=== PATIENT | female | born 1970 | race Caucasian/White ===

== ENCOUNTER 2020-11-25 11:28 | Outpatient (CLI) | payer OTHER, SELFPAY | END 2020-11-25 11:29 | disposition home or self-care (01) | LOC: ANHSURGERY 11:34 | PROVIDERS: PCP Family Medicine; Visit Provider Obstetrics & Gynecology | DX: Z01.812 Encounter for preprocedural laboratory examination (principal); D25.9 Leiomyoma of uterus, unspecified | CPT/HCPCS: 36415; 86850; 86900; 86901 ==

== ENCOUNTER 2020-11-29 00:34 | Day surgery (SDC) | payer OTHER, SELFPAY ==
[2020-11-23 17:57] VITALS: BMI 31.3
[2020-11-29] VITALS (11 sets, daily range): BP systolic 103–121; BP diastolic 58–73; PULSE 67–97; RESP 12–18; TEMP 36.2–37.3; O2SAT 97–100
[2020-11-29] MEDS: ACETAMINOPHEN 500 MG TABLET 1000 MG PO (10:38)
[2020-11-29] MEDS: KETOROLAC 15 MG/ML VIAL (*BKC) IV PUSH (10:45)
[2020-11-29] MEDS: LACTATED RINGERS 1,000 ML 30 ML IV CONT ×2 (10:45→15:05)
--- NOTE | 2020-11-29 11:27 | P.PNAN_ITS ---
Anes - Initial Pre Proc Eval Procedure: Operation Date: 11/29/20 12:00 Proposed Procedures p Laparoscopic Assisted Total Vaginal Hysterectomy With Bilateral Salpingo- Oophorectomy - Tyrone Hernandez MD Date/Time: 11/29/20 11:27 Surgeon: Tyrone Hernandez MD Pre Op Diagnosis: Uterine Leiomyoma Patient Data Age: 50 Gender: F Height: 1.68 m Weight: 89.4 kg Last Vital Signs Temp 97.9 F 11/29/20 10:10 Pulse 86 11/29/20 10:10 Resp 16 11/29/20 10:10 BP 119/71 11/29/20 10:10 Pulse Ox 100 11/29/20 10:10 Allergies Allergy/AdvReac Type Severity Reaction Status Date / Time propoxyphene AdvReac Intermediate Nausea and Verified 11/29/20 10:44 [From Darvocet-N] Vomiting Home Medications Medication Instructions Recorded Confirmed Type melatonin 1 tablet PO HS PRN 11/23/20 11/29/20 History Patient hx anesthesia problems: none Family hx anesthesia problems: none [facility] Past Medical History Medical History (Updated 11/29/20 @ 11:27 by Vikram German MD) Migraine Social History Social History Smoking status: Never smoker Living arrangements: with family Spiritual care concerns: No Anes - Eval Final PreProcedure Day of Procedure 11/29/20 11:27 Patient weight: obese Heart: regular rate and rhythm Lungs: clear to auscultation Airway: Mallampati scale class II Neurological: alert and oriented Last oral intake: >/= 8 hours ASA classification: II Emergent: no Anesthetic plan: proceed Anesthesia type and monitoring: general ETT and standard monitoring Informed Consent: The patient's anesthetic plan and its attendant risks and benefits were discussed with the patient/family/POA. Questions were solicited and answers provided to the satisfaction of the patient/family/POA.
--- NOTE | 2020-11-29 12:19 | WPDHPUPDATE1 ---
History and Physical Update Update Date/Time: 11/29/20 12:19 History and Physical has been reviewed, including an updated exam of the patient. There are NO changes in the patient's condition. Risks, benefits, and alternatives have been discussed and questions answered. Patient agrees to proceed with procedure.
[2020-11-29] MEDS: ceFAZolin 2 GM/D5W 50 ML 2 GM/50 ML BAG IVPB (12:29)
--- NOTE | 2020-11-29 14:58 | W.PM.PROC2 ---
Procedure Note - Detailed Date of Procedure 11/29/20 Pre-op Diagnosis Uterine Leiomyoma, menorrhagia Post-op Diagnosis same (abdominal adhesions) Procedure Performed Total laparoscopic hysterectomy and bilateral salpingo oophorectomy, adhesiolysis - 1 hour. Surgeon Tyrone Hernandez MD Anesthesia general Indications Severe menometrorrhagia, yo,a Findings Fibroid uterus, very large, multiple large fibroids. Adhesions between the omentum the anterior abdominal wall. Cystic ovaries, normal-appearing tubes. Description of Procedure This patient was taken to the operating room. She was prepped and draped in the dorsal lithotomy position after induction of general anesthesia. A 5 mm skin incision was made in the left upper quadrant the abdomen. A 5 mm trocar was inserted into the intrauterine cavity under direct visualization of the scope. Pneumoperitoneum was achieved. A left lower quadrant 11 mm incision was made with scalpel. An 11 mm trocar was inserted into the anterior abdominal cavity under direct visualization the scope. A 5 mm infraumbilical incision was made with a scalpel and a 5 mm trocar was inserted the intra-abdominal cavity under direct visualization of the scope. 2 additional trocars were placed in the right lower quadrant and right upper quadrant. These were done in identical fashion to the above trocars. These 2 ports were used to perform adhesiolysis. One of adhesiolysis was performed to separate the omentum from the anterior abdominal wall. This was done with sharp and blunt dissection and LigaSure cautery. The bowel was examined and there were no injuries to the intestine in the area of adhesiolysis. There was significant omentum between the area of interest and the bowel. The uterine manipulator and Coke per were placed. This was done with a speculum. The speculum was placed. The cervix was grasped with a tenaculum. The stay sutures were placed at 3 and 9:00 a.m.. The stay sutures of 0 Vicryl were brought through the appropriately sized Vania cup. The tip of the JONNY manipulator was placed in the intrauterine cavity. The cup was slid into place around the cervix and into the fornices. It was locked into place. The sutures were then wrapped around the handle and tied under tension. Bilateral ureteral lysis was performed. This was done from the pelvic brim down to the uterine artery. This was done with careful dissection using sharp and blunt dissection. The infundibulo pelvic ligament was Isolated and cauterized with ligature cautery. This was done just adjacent to the ovary away from the ureter. The para ovarian tissue was cauterized transected with LigaSure cautery. This was done in a bilateral fashion and a stepwise fashion around to the round ligament. In a stepwise fashion along the lateral aspects of the uterus the round ligament and broad ligaments were cauterized and transected down to the level of the uterine arteries. A bladder flap was created in the bladder was moved distally to the end of the cervix and over the Vania cup. The bilateral uterine arteries were cauterized and transected. Colpotomy was then performed. In a circumferential fashion the vagina was transected using unipolar cautery. The incision was made down on the Vania. The uterus and cervix were taken out through the vagina. A pneumo occluder was placed in the vagina. The vaginal cuff was closed with a 0 V lock suture. The pelvis was irrigated with copious amounts antibiotic irrigation. The ureters were again examined and found to be intact and flowing freely under the uterine arteries into the bladder. The bladder was intact. It was examined directly. The vagina was irrigated with Betadine solution after removal of the Pneumo occluder. The patient was taken to recovery room. She was stable condition. Sponge lap and needle counts were correct x2. Estimated Blood Loss 100 Drains Yes Packing No Pathology yes Complications No immediat
--- NOTE | 2020-11-29 15:03 | SUR.OPER ---
1503- right arm has IV tubing impression from arm wrapping. Will report to [facility]PH[employer]ST[facility] RESTORER.
[2020-11-29] MEDS: ESTRADIOL 7 DAY 0.05 MG PATCH TRANSDERM (16:49)
[2020-11-29] MEDS: DEXTROSE 5%/0.45% SOD CHL 1,000 ML 125 ML IV CONT (16:50)
[2020-11-29] MEDS: KETOROLAC 30 MG/ML VIAL (*BKC) IV PUSH (16:58)
--- NOTE | 2020-11-29 17:04 | OBPPTRN ---
1624 Patient transferred to post room #289 via bed. Support person present. Oriented to unit, room, information board, admission packet and security measures. Patient verbalizes understanding.
[2020-11-29] MEDS: HYDROcodone/acetaminophen (*CRX) 5-325 MG TABLET 1 TAB PO (22:33)
[2020-11-29] MEDS: IBUPROFEN 600 MG TABLET PO (22:33)
[2020-11-30] MEDS: IBUPROFEN 600 MG TABLET PO (04:37)
[2020-11-30] MEDS: HYDROcodone/acetaminophen (*CRX) 5-325 MG TABLET 1 TAB PO ×2 (04:38→09:42)
[2020-11-30 04:51] VITALS: BP 111/65; PULSE 83; RESP 16; TEMP 37.3; O2SAT 97
[2020-11-30 08:20] VITALS: BP 110/59; PULSE 72; RESP 16; TEMP 36.9; O2SAT 98
--- NOTE | 2020-11-30 08:50 | PM.GYNPNOP ---
[employer] OPERATOR - A/P Postoperative Procedures: Procedures Operation Date: 11/29/20 12:00 Actual Procedure Side Surgeon p Laparoscopic Assisted Total Vaginal Hysterectomy With Bilateral Salpingo-Oophorectomy, Lysis of adhesions Bilateral Tyrone Hernandez MD Postoperative day: 1 Postoperative status: doing well and other (Tollerating Regular Diet) Postoperative plan: routine post-op care and discharge Time Spent With Patient Time: Total time spent is greater than 50% in coordination of care (as documented) at patient's floor/unit and/or counseling patient: Time with patient: 15 - 25 minutes [employer] OPER[employer]- PN:Subj Post-Op Subjective Date/time seen: 11/30/20 08:50 Subjective: patient reports feeling better, pain is well controlled and patient is tolerating oral intake Exam Const: General: cooperative, healthy appearing, comfortable and no acute distress Resp: Auscultation: no crackles, no rales, no rhonchi and no wheezes Cardio: Rhythm: regular rhythm Heart sounds: no click and no murmurs GI: Inspection: non-distended Auscultation: normal bowel sounds Other: Incisions - CDI Extrem: General: normal to inspection, no pedal edema and no calf tenderness [employer] OPERATOR - PN: Obj Data Vital Signs Vital Signs: Vital Signs - 24 hr 11/29/20 10:10 11/29/20 15:05 11/29/20 15:15 Temperature 97.9 F 98.8 F Pulse Rate 86 97 86 Respiratory Rate 16 14 14 Blood Pressure 119/71 114/58 L 115/66 Pulse Oximetry 100 100 100 11/29/20 15:25 11/29/20 15:40 11/29/20 15:50 Temperature Pulse Rate 80 69 68 Respiratory Rate 14 14 14 Blood Pressure 112/65 113/73 114/73 Pulse Oximetry 100 99 99 11/29/20 16:00 11/29/20 16:15 11/29/20 16:24 Temperature 97.2 F L Pulse Rate 71 77 67 Respiratory Rate 12 12 16 Blood Pressure 121/67 120/68 110/64 Pulse Oximetry 98 99 97 11/29/20 20:00 11/29/20 23:59 11/30/20 04:51 Temperature 98.5 F 99.2 F 99.2 F Pulse Rate 86 80 83 Respiratory Rate 16 18 16 Blood Pressure 103/62 116/69 111/65 Pulse Oximetry 97 97 97 Intake/Output Intake/Output: Intake & Output 11/27/20 11/28/20 11/29/20 11/30/20 23:59 23:59 23:59 23:59 Intake Total 2004 100 Output Total 1739 150 Balance 265 -50 Meds/Results Medications: Active Medications Generic Name Dose Route Start Last Admin Trade Name Freq PRN Reason Stop Dose Admin Hydrocodone Bitart/Acetaminophen 1 tab 11/29/20 16:19 11/30/20 04:38 Hydrocodone/Acetaminophen (*Crx) 5-325 Mg Tablet PO 1 tab Q3H PRN Administration Pain Rated 5 or Less Hydrocodone Bitart/Acetaminophen 1 tab 11/29/20 16:19 Hydrocodone/Acetaminophen (*Crx) 10-325 Mg Tablet PO Q3H PRN Pain Rated 6 or Greater Estradiol 0.05 mg 11/29/20 16:19 11/29/20 16:49 Estradiol 7 Day 0.05 Mg Patch TRANSDERM 0.05 mg WEEKLY PEG Administration Dextrose/Sodium Chloride 1,000 mls @ 125 mls/hr 11/29/20 16:19 11/29/20 21:30 Dextrose 5% Sodium Chloride 0.45% IV CONT 0 mls/hr .Q8H PEG Infusion Ibuprofen 600 mg 11/29/20 16:19 11/30/20 04:37 Ibuprofen 600 Mg Tablet PO 600 mg Q6H PRN Administration Cramping Ketorolac Tromethamine 30 mg 11/29/20 16:19 11/29/20 16:58 Ketorolac 30 Mg/Ml Vial (*Bkc) IV PUSH 12/04/20 16:20 30 mg Q6H PRN Administration Pain Rated 4-6 Naloxone HCl 0.1 mg 11/29/20 16:19 Naloxone Hcl 0.4 Mg/Ml Vial IV PUSH Q2M PRN Respiratory rate less than 10 Ondansetron HCl 4 mg 11/29/20 16:19 Ondansetron Inj 4 Mg/2 Ml Vial IV PUSH Q6H PRN Nausea And Vomiting Simethicone 80 mg 11/29/20 16:19 Simethicone 80 Mg Tab.Chew PO Q2H PRN Gas
[2020-11-30 09:15] VITALS: PULSE 72; RESP 16; O2SAT 98
[2020-11-30] MEDS: SIMETHICONE 80 MG TAB.CHEW PO (09:43)
--- NOTE | 2020-11-30 11:24 | WPDANESPN ---
Anes - Prog Note Post-Op Date/Time: 11/30/20 11:24 Cardiovascular status: normal Respiratory status: normal Airway patency: baseline Mental status: baseline Post-Op hydration status: normal Vital Signs: Last Vital Signs Temp 36.9 C 11/30/20 08:20 Pulse 72 11/30/20 09:15 Resp 16 11/30/20 09:15 BP 110/59 L 11/30/20 08:20 Pulse Ox 98 11/30/20 09:15 Pain Score (VAS): 0 I/O: Intake & Output 11/29/20 11/30/20 11/30/20 23:59 07:59 15:59 Intake Total 1955 100 Output Total 1740 150 650 Balance 215 -50 -650 Post-procedural complaints: none Patient Feedback: Patient satisfied with anesthetic care.
== END 2020-11-30 11:40 | disposition home or self-care (01) ==
LOC: ANHSURGERY 15:57 → ANHOB2 16:30
PROVIDERS: PCP Family Medicine; Visit Provider Obstetrics & Gynecology
PROC: 0UT9FZZ Resection of Uterus, Via Natural or Artificial Opening With Percutaneous Endoscopic Assistance (ICD-10-PCS; CPT 58573; principal; 2020-11-29 12:00)
DX: N92.0 Excessive and frequent menstruation with regular cycle (principal); N80.0 Endometriosis of uterus; D25.1 Intramural leiomyoma of uterus; D25.0 Submucous leiomyoma of uterus; D25.2 Subserosal leiomyoma of uterus; N73.6 Female pelvic peritoneal adhesions (postinfective); N83.8 Other noninflammatory disorders of ovary, fallopian tube and broad ligament; D27.9 Benign neoplasm of unspecified ovary; N83.00 Follicular cyst of ovary, unspecified side; E66.9 Obesity, unspecified; Z68.31 Body mass index [BMI] 31.0-31.9, adult
CPT/HCPCS: 58573; 36415; 86850; 86900; 86901; 88305; 88307; 99199; A9270; J0690; J1100; J1170; J1885; J2250; J2405; J2704; J2710; J3010; J7030; J7120

== ENCOUNTER 2021-06-01 10:37 | Outpatient (CLI) | payer OTHER, SELFPAY ==
--- NOTE | 2021-06-01 | ECG_ITS ---
Measurements Intervals Ralph Rate: 65 P: -6 AK: 178 QRS: 9 QRSD: 107 T: 10 QT: 367 QTc: 384 Interpretive Statements SINUS RHYTHM LOW QRS VOLTAGE IN PRECORDIAL LEADS BORDERLINE R WAVE PROGRESSION, ANTERIOR LEADS BORDERLINE ECG Electronically Signed On 06-01-2021 12:25:06 LOBBYIST by Kamron Katz D.O.
== END 2021-06-01 10:38 | disposition home or self-care (01) ==
LOC: ANHLAB 10:39
PROVIDERS: PCP Family Medicine; Visit Provider Obstetrics & Gynecology
DX: E66.9 Obesity, unspecified (principal)
CPT/HCPCS: 93005